=== PATIENT | male | born 2000 | race Caucasian/White ===

== ENCOUNTER 2023-01-10 15:30 | Emergency (ER) | payer OTHER ==
[~2023-01-10] VITALS: Ht 188 cm; Wt 99.8 kg
[2023-01-10] MEDS ORDERED: PREVACID30 M3 PO (16:49)
[2023-01-10] MEDS ORDERED: PENICILLIN VK500 MG PO (16:49)
[2023-01-10] MEDS ORDERED: ONDANSETRON4 MG SL (16:51)
== END 2023-01-10 17:18 | disposition home or self-care (01) ==
LOC: ED 15:30
DX: K08.89 Other specified disorders of teeth and supporting structures (principal); K05.10 Chronic gingivitis, plaque induced; K29.70 Gastritis, unspecified, without bleeding